=== PATIENT | female | born 1995 | race African-American/Black ===

== ENCOUNTER 2018-08-21 21:38 | Emergency (ER) | payer SELFPAY ==
[~2018-08-21] VITALS: Ht 167.6 cm; Wt 90.7 kg
--- NOTE | 2018-08-21 21:38 | NUR ---
PT BIBA TO ER BED 07
[2018-08-21 21:40] VITALS: BP 150/93
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
--- NOTE | 2018-08-21 22:20 | NUR ---
PT REFUSED TO COLLECT URINE SAMPLE
--- NOTE | 2018-08-21 22:25 | NUR ---
PT REFUSED LAB DRAW AT THIS TIME.
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
--- NOTE | 2018-08-21 22:59 | NUR ---
PT REFUSING LABS AT THIS TIME.
[2018-08-22 00:10] VITALS: BP 148/91
--- NOTE | 2018-08-22 00:10 | NUR ---
Patient discharged with v/s stable. Written and verbal after care instructions given and explained. Patient alert, oriented and verbalized understanding of instructions. Ambulatory with steady gait. All questions addressed prior to discharge. ID band removed. Patient advised to follow up with PMD. Rx of BACITRACIN, BENADRYL, AND TYLENOL given. Patient educated on indication of medication including possible reaction and side effects. Opportunity to ask questions provided and answered.
--- NOTE | 2018-08-22 00:15 | NUR ---
[facility] PROVIDED. PT REFUSED TO SIGN
== END 2018-08-22 00:10 | disposition home or self-care (01) ==
LOC: MED 21:38
DX: T20.44XA Corrosion of unspecified degree of nose (septum), initial encounter (principal); T20.46XA Corrosion of unspecified degree of forehead and cheek, initial encounter; R41.82 Altered mental status, unspecified; F31.9 Bipolar disorder, unspecified; X08.8XXA Exposure to other specified smoke, fire and flames, initial encounter; Y93.89 Activity, other specified; Y92.89 Other specified places as the place of occurrence of the external cause; Y99.8 Other external cause status
CPT/HCPCS: 93005; 99283

== ENCOUNTER 2018-08-22 01:10 | Emergency (ER) | payer SELFPAY ==
[~2018-08-22] VITALS: Ht 162.6 cm; Wt 108.9 kg
[2018-08-22 01:31] VITALS: BP 143/95
--- NOTE | 2018-08-22 01:31 | NUR ---
PT BIB [place] [employer]. PRE BOOK; PATIENT STATES PAIN OF 0/10 AT THIS TIME; VSS; PATIENT POSITIONED FOR COMFORT; HOB ELEVATED; BEDRAILS UP X2; BED DOWN. ER MD MADE AWARE OF PT STATUS.
[2018-08-22 01:40] VITALS: BP 143/95
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
== END 2018-08-22 01:40 ==
LOC: MED 01:10
DX: F31.9 Bipolar disorder, unspecified (principal); Z02.89 Encounter for other administrative examinations; Z88.0 Allergy status to penicillin
CPT/HCPCS: 99283